=== PATIENT | female | born 1950 | race Caucasian/White ===

== ENCOUNTER 2017-03-26 10:11 | Emergency (ER) | payer SELFPAY ==
[2017-03-26 10:11] VITALS: BMI 24.7
[2017-03-26 10:35] VITALS: O2SAT 100
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
[2017-03-26 14:19] VITALS: BP 143/84; PULSE 76; RESP 18; TEMP 98.4
== END 2017-03-26 14:18 | disposition home or self-care (01) ==
LOC: C.ER 10:11
DX: S10.91XA Abrasion of unspecified part of neck, initial encounter (principal); S00.03XA Contusion of scalp, initial encounter; Y04.0XXA Assault by unarmed brawl or fight, initial encounter